=== PATIENT | female | born 1970 | race American Indian/Alaskan Native ===

== ENCOUNTER 2016-08-08 08:59 | Emergency (ER) ==
[2016-08-08 09:06] VITALS: BP 107/54; TEMP 100; BMI 23.8
--- NOTE | 2016-08-08 09:16 | ED.PDOC ---
General ED Provider: Dr. ABBY CLARKE JR Chief Complaint: Non-specific Complaint Stated Complaint: patient states on the left side of her neck the muscle has been "twitching." states this morning she was trying to fall back to sleep and felt the twitching with a sudden onset of shortness of breath. states got up to walk around and chest felt tight and dizzy and lightheaded. states that was a 6:45 this morning.[End]100. 79 20 97 107/54 neck twitching Time Seen by Physician: 09:14 Mode of Arrival: Walk-In Information Source: Patient Exam Limitations: No limitations [facility] T[facility] Documentation Reviewed and Agree: No Review of Systems - Review Of Systems Constitutional: Reports: Malaise Eyes: Reports: No symptoms Ears, Nose, Mouth, Throat: Reports: No symptoms Respiratory: Reports: Orthopnea, Short of air Cardiac: Reports: Chest pain (no pain tightness) GI: Reports: No symptoms : Reports: No symptoms Musculoskeletal: Reports: No symptoms Skin: Reports: No symptoms Neurological: Reports: Anxiety, Other (left neck twitching) Endocrine: Reports: No symptoms Hematologic/Lymphatic: Reports: No symptoms All Other Systems: Other Past Medical History - Past Medical History Previously Healthy: Yes Endocrine: Reports: None Cardiovascular: Reports: None Respiratory: Reports: None Hematological: Reports: Anemia Gastrointestinal: Reports: GERD Genitourinary: Reports: Other (Trichomonus vaginosis 1 month ago ) Neuro/Psych: Reports: Anxiety, Depression Musculoskeletal: Reports: None Cancer: Reports: None Last Menstrual Period: beginning of jul. Other Pertinent Past Medical History: Nasal Polyps. lmp early fe - Surgical History General Surgical History: Reports: Tubal ligation, Cholecystectomy - Family History Family History: Reports: Unknown - Social History Smoking Status: Former smoker Hx Substance Use: No Alcohol Screening: None Physical Exam - Physical Exam Appearance: Well-appearing, Thin Ill-appearing: Mild Pain Distress: Mild Eyes: CAMILLA, EOMI, Conjunctiva clear ENT: Ears normal, Nose normal, Oropharynx normal Neck: Supple Respiratory: Airway patent, Breath sounds clear, Breath sounds equal, Respirations nonlabored Cardiovascular: RRR, Pulses normal, No rub, No murmur GI/: Soft, No masses, Bowel sounds normal, No Organomegaly, Tender (left paraumbilical, diffuse mild tenderness states worse with swedish food(likes swedish food) since gall bladder excision) Musculoskeletal: Normal strength, ROM intact, No edema, No calf tenderness Skin: Warm, Dry, Normal color Neurological: Sensation intact, Motor intact, Reflexes intact, Cranial nerves intact, Alert, Oriented Psychiatric: Anxious Interpretation - EKG Interpretation Time of EKG #1: 09:40 Rate: Normal Rhythm: Sinus Ectopy: None [place]: NL ST Segment: Normal Critical Care Note - Critical Care Note Total Time (mins): 0 Course - Course Vital Signs: Temp Pulse Resp BP Pulse Ox 08/08/16 09:03 100 F H 79 20 107/54 L 97 Departure - Departure Time of Disposition: 09:31 Disposition: HOME SELF-CARE Discharge Problem: Shortness of breath, Bile-induced gastritis Instructions: Dyspnea (ED), Gastritis (ED) Condition: Good Pt referred to PMD for follow-up: Yes Additional Instructions: recommend discuss symptoms with consellor your stress level should be decreased returning family member may be causing too much stress and may need to find other lodgings may try fiber supplements to ease bile symptoms (metamucil fibercon or colace) discuss symptoms with PMD consider gut endocrine overproduction (metanephrines) Allergies/Adverse Reactions: Allergies aspirin Adverse Reaction (Verified 08/08/16 09:06) Difficulty Breathing Penicillins Adverse Reaction (Verified 08/08/16 09:06) NOT SURE OF REACTION, WAS A CHILD promethazine [From Phenergan] Adverse Reaction (Verified 08/08/16 09:06) SHAKEY Home Medications: Ambulatory Orders Omeprazole [Prilosec] 20 mg PO DAILY 10/26/15 Ferrous Gluconate 1 gm MC DAILY #1 powder 05/08/16 Alprazolam [Xanax] 0.5 mg PO BID #60 05/18/16 Albuterol Sulfate [Ventolin Hfa] 18 gm IH TID #1 [email or web address] 05/27/16
== END 2016-08-08 10:14 | disposition home or self-care (01) ==
LOC: ED 08:59
DX: R06.02 Shortness of breath (principal); K29.60 Other gastritis without bleeding; R07.9 Chest pain, unspecified; R42 Dizziness and giddiness; R25.3 Fasciculation
CPT/HCPCS: 93005; 93010; 99283

== ENCOUNTER 2016-10-19 06:14 | Outpatient (CLI) ==
--- NOTE | 2016-10-23 13:02 | ECHOSTRESS ---
Date of Exam: 10/19/16 Ordering Physician: MARLENE Reason for Echo: CHEST TIGHTNESS/PRESSURE, STRESS TEST--NO ISCHEMIA M-Mode Normal Adult Results LV Dimensions Normal Adult Results AoV Opening excursions >1.6 LVEDD-base- 3.5-5.8 Ao root dimensions 2.0-3.7 LVESD-base- 3.1-4.6 L. Atrium dimensions 1.9-3.8 Post. Wall thickness 0.8-1.1 IV septum (thickness) 0.7-1.2 Post. Wall excursion 0.72-1.3 Septal motion Systolic motion R. Ventricular cavity 1.5-2.0 LVEF 60% Paradoxical septal wall motion 2-D: NORMAL LEFT VENTRICULAR CONTRACTILITY--RESTING AND POST EXERCISE M-MODE: MV: AV: TV: PV: CHAMBER SIZE: WALL MOTION: NORMAL LEFT VENTRICULAR CONTRACTILITY--RESTING AND POST EXERCISE PERICARDIUM: INTERPRETATION: 1. NORMAL LEFT VENTRICULAR CONTRACTILITY--RESTING AND POST EXERCISE MTDD
--- NOTE | 2016-10-23 13:12 | STRESSECHO ---
Date of Test: 10/19/16 Reason for Exam: CHEST TIGHTNESS/PRESSURE Ordering Physician: MARLENE Current Medications: OMEPROZOL,XANAX, IRON Resting EKG: SINUS RHYTHM/NO ACUTE CHANGES Target Heart Rate: 147/173 STAGE MPH/GRADE HEART RATE BPM BLOOD PRESSURE mmhg RHYTHM S-T SEGMENT +/- UP DOWN SYMPTOMS,COMMENTS At Rest 65 100/78 SR X NONE 1 1.7/10% 105 128/76 SR X NONE 2 2.5/12% 130 120/74 SR X NONE 3 3.4/14% 4 4.2/16% 5 5.0/18% Immediately after 153 SR X FATIGUE Durations of Exercise: 7:09 Maximum Heart Rate Reached: 153 Reason for Termination: FATIGUE INTERPRETATION: 98% OXYGEN SATURATION WITH EXERCISE ON ROOM AIR METS 10.1 1. NO EVIDENCE OF ISCHEMIA BY ST-T WAVE 2. NO CHEST PAIN OR DISCOMFORT 3. RARE PVC'S WITH EXERCISE 4. BLOOD PRESSURE RESPONSE: NORMAL NORMAL LEFT VENTRICULAR CONTRACTILITY--RESTING AND POST EXERCISE MTDD
== END 2016-10-19 06:15 | disposition home or self-care (01) ==
LOC: CAR 06:14
PROVIDERS: ATTEND General Practice
DX: R07.89 Other chest pain (principal)

== ENCOUNTER 2016-10-23 09:22 | Outpatient (CLI) ==
--- NOTE | 2016-10-23 09:46 | DI ---
Exam: Three x-rays of the nasal bones. Comparison: CT exam of the brain performed on 03/05/2015. Reason for exam: Acquired deformity of nose. FINDINGS: There is a slight inferior angulation of the right nasal bone tip when compared to the le ft. The remainder of the facial bones are unremarkable without displaced fracture. There is pneumat ization of both maxillary and frontal sinuses. Impression: Mild inferior angulation of the right nasal bone tip when compared to the left.
== END 2016-10-23 09:23 | disposition home or self-care (01) ==
LOC: RAD 09:22
PROVIDERS: ATTEND General Practice
DX: M95.0 Acquired deformity of nose (principal)

== ENCOUNTER 2016-11-05 23:07 | Emergency (ER) ==
[2016-11-05 23:16] VITALS: BMI 21.2
[2016-11-05] MEDS ORDERED: SODIUM CHLORIDE 1,000 ML IV STA (23:35)
[2016-11-05] MEDS ORDERED: DOXY-100 100 MG in SODIUM CHLORIDE 250 ML IV STA (23:35)
[2016-11-05] MEDS ORDERED: NORCO 5-325 PO STA (23:38)
[2016-11-06 00:01] LABS: BASOPHILS % (AUTO) 0.6 % (0.0-3.0); EOSINOPHILS % (AUTO) 0.3 % (0.0-7.0); HEMATOCRIT 33.7 % (37.0-47.0); HEMOGLOBIN 11.7 g/dl (12.0-16.0); IMMATURE GRANULOCYTE % (AUTO) 0.3 % (0.0-5.0); LYMPHOCYTES # (AUTO) 0.6 K/uL (0.60-3.4); LYMPHOCYTES % (AUTO) 17.7 (10.0-50.0); MEAN CORPUSCULAR HEMOGLOBIN 31.6 pg (27.0-31.0); MEAN CORPUSCULAR HGB CONC 34.7 (31.8-35.4); MEAN CORPUSCULAR VOLUME 91.1 fl (81.0-99.0); MONOCYTES # (AUTO) 0.2 K/uL (0.4-2.0); MONOCYTES % (AUTO) 6.3 (0-10); NEUTROPHILS # (AUTO) 2.6 K/ul (2.0-6.9); NEUTROPHILS % (AUTO) 74.8; PLATELET COUNT 91 10^3/uL (140-440)
[2016-11-06 00:18] LABS: ADD URINE MICROSCOPIC NO; BILIRUBIN,URINE Negative (NEGATIVE); KETONES,URINE Negative (NEGATIVE); LEUKOCYTE ESTERASE ,URINE Negative (NEGATIVE); NITRITE,URINE Negative (NEGATIVE); PH,URINE 8.5 (5-9); PROTEIN,URINE Negative (NEGATIVE); URINE, BLOOD Negative (NEGATIVE)
[2016-11-06 00:23] LABS: ALBUMIN 3.9 g/dL (3.4-5.0); ALBUMIN/GLOBULIN RATIO 1.26; ANION GAP 12.9; BILIRUBIN,TOTAL 0.48 mg/dL (0.00-1.20); BUN/CREATININE RATIO 8.82; CALCIUM 8.7 mg/dL (8.2-10.2); CREATININE 0.68 mg/dL (0.60-1.30); POTASSIUM 3.9 mmol/L (3.5-5.10)
[2016-11-06 00:24] LABS: FLU INTERNAL QC INTERNAL QC VALID; RAPID FLU A NEGATIVE (NEGATIVE); RAPID FLU B NEGATIVE (NEGATIVE)
--- NOTE | 2016-11-06 00:30 | CT ---
EXAM: CT scan abdomen pelvis without contrast HISTORY: Pain fever COMPARISON: None. FINDINGS: Contiguous axial images obtained through the abdomen pelvis without contrast utilizing 3- mm collimation. Sagittal and coronal reconstructions were imaged reviewed.. The visualized lung ba ses are clear. There is a small hiatal hernia. There has been prior cholecystectomy. The liver, p ancreas, spleen and adrenal glands have normal unenhanced CT appearance.. The abdominal aorta is no rmal course and caliber without aneurysm formation. The kidneys are morphologically normal. There is a normal retrocecal appendix. There is no evidence of free fluid or inflammatory changes. There is a small umbilical hernia containing only fat. IMPRESSION: No acute intra-abdominal findings.. Umbilical hernia containing only fat. Normal appendix Status post cholecystectomy
[2016-11-06 00:32] LABS: ERYTHROCYTE SEDIMENTATION RATE 26 mm/hr (0-20); ESR INTERNAL QC INTERNAL QC VALID
--- NOTE | 2016-11-06 00:38 | CT ---
EXAM: CT scan lumbar spine HISTORY: Back pain fever COMPARISON: None. FINDINGS: Contiguous axial images obtained through the lumbar spine utilizing 3-mm collimation. Sa gittal and coronal reconstructions were imaged and reviewed.. The vertebral bodies are normal in hei ght and alignment. The facet joints intact.. At L2-L3 there is mild concentric disc bulge with fac et arthropathy.. At L3-L4 there is moderate concentric disc bulge with facet arthropathy. Central canal and foramen are patent At L4-L5 there is moderate concentric disc bulge with ligamentum flav um and facet hypertrophy causing early triangulation central canal. There is mild left neural karina inal narrowing.. At L5-S1 there is mild concentric disc bulge with facet arthropathy. Central madhuri l foramen are patent. IMPRESSION: Multilevel non compressive annular disc bulge with facet arthropathy. Mild triangulation of the central canal L4-L5 with associated left neural foramen.
[2016-11-06 02:46] VITALS: BP 111/69; TEMP 98
--- NOTE | 2016-11-06 02:48 | ED.PDOC ---
General ED Provider: Dr. CARLOS ENRIQUE NEWELL-ER Chief Complaint: Fever Stated Complaint: i was bitten by a tick Time Seen by Physician: 23:10 Information Source: Patient Exam Limitations: No limitations [facility] and Triage Documentation Reviewed and Agree: Yes Musculoskeletal Complaint Exam - Back Pain Complaint/Exam Mechanism of Injury: Reports: No known trauma Onset/Duration: 24hrs Symptoms Are: Still present Timing: Constant Episodes Lasting: Minutes Initial Severity: Mild Current Severity: Mild Location: Reports: Discrete Character: Reports: Dull, Aching Aggravating: Reports: Movements, Lifting, Bending, Walking Alleviating: Reports: None Associated Signs and Symptoms: Reports: Fever, Flank pain. Denies: Swelling, Redness, Bruising, Weakness, Numbness, Tingling, Abdominal pain, Bladder incontinence, Bowel incontinence, Weight loss, Pain with weight bearing Related History: Reports: Similar episode TAD Risk Factors: Reports: None AAA Risk Factors: Reports: None Cauda Equina Risk Factors: Reports: None Epidural Abcess Risk Factors: Reports: None Related Surgical History: Reports: None Focal Tenderness: Yes Paraspinal Muscle Tenderness: Yes Paraspinal Muscle Spasm: No Scoliosis: No Lordosis: No Kyphosis: No SLR Test: Right Negative, Left Negative Hip Motion Testing Pain: Right Negative, Left Negative Focal Weakness: Present: None Focal Sensory Loss: Present: None Gait: Present: Normal Differential Diagnoses: Other Review of Systems - Review Of Systems Constitutional: Reports: Fever, Weakness Eyes: Reports: No symptoms Ears, Nose, Mouth, Throat: Reports: No symptoms Respiratory: Reports: No symptoms Cardiac: Reports: No symptoms GI: Reports: No symptoms : Reports: No symptoms Musculoskeletal: Reports: Back pain Skin: Reports: No symptoms Neurological: Reports: No symptoms Endocrine: Reports: No symptoms Hematologic/Lymphatic: Reports: No symptoms All Other Systems: Reviewed and Negative Past Medical History - Past Medical History Previously Healthy: Yes Endocrine: Reports: None Cardiovascular: Reports: None Respiratory: Reports: None Hematological: Reports: Anemia Gastrointestinal: Reports: GERD Genitourinary: Reports: Other (Trichomonus vaginosis 1 month ago ) Neuro/Psych: Reports: Anxiety, Depression Musculoskeletal: Reports: None Cancer: Reports: None Last Menstrual Period: 3 days Other Pertinent Past Medical History: Nasal Polyps. lmp early feb - Surgical History General Surgical History: Reports: Tubal ligation, Cholecystectomy - Family History Family History: Reports: Unknown - Social History Smoking Status: Former smoker Hx Substance Use: No Alcohol Screening: None Lives: With family - Immunizations Tetanus Shot up to Date: No (unknown) Physical Exam - Physical Exam Appearance: Well-appearing, No pain distress, Well-nourished Pain Distress: Mild Eyes: CAMILLA ENT: Ears normal, Nose normal, Oropharynx normal Neck: Supple Respiratory: Airway patent Cardiovascular: RRR, Pulses normal, No rub, No murmur GI/: Soft, Nontender, No masses, Bowel sounds normal, No Organomegaly Musculoskeletal: Normal strength, ROM intact, No edema, No calf tenderness Skin: Warm, Dry, Normal color Neurological: Sensation intact, Motor intact, Reflexes intact, Cranial nerves intact, Alert, Oriented Psychiatric: Affect appropriate, Mood appropriate Interpretation - Radiology Interpretation Radiology Interpretation By: Radiologist Radiology Results: Negative Exam Interpreted: CT Scan Physician Notification - Case Discussed Physician Notified: dr [place]--suggested to transfer the patient Time of Notification: 02:49 Critical Care Note - Critical Care Note Total Time (mins): 0 Course - Course Hematology/Chemistry: 11/05/16 23:35 11/05/16 23:55 Orders, Labs, Meds: Lab Review 11/05/16 11/05/16 11/05/16 23:35 23:40 23:42 WBC 3.50 L RBC 3.70 L Hgb 11.7 L Hct 33.7 L MCV 91.1 MCH 31.6 H MCHC 34.7 RDW Coeff of Avila 13.9 Plt Count 91 L Immature Gran % (Auto) 0.3 Neut % (Auto) 74.8 Lymph % (Auto) 17.7 Mitchell % (Auto) 6.3 Eos % (Auto) 0.3 Baso % (Auto) 0.6 Immature Gran # (Auto) 0.0 Neut # 2.6 Lymph # 0.6 Mitchell # 0.2 L Eos # 0.0 Baso # 0.0 ESR Sodium Potassium Chloride Carbon Dioxide Anion Gap BUN Creatinine Estimated GFR (MDRD) BUN/Creatinine Ratio Glucose Lactic Acid Calcium Total Bilirubin AST ALT Alkaline Phosphatase Total Protein Albumin Globulin Albumin/Globulin Ratio Amylase Lipase Procalcitonin Urine Color Yellow Urine Clarity Clear Urine pH 8.5 Ur Specific Eads 1.020 Urine Protein Negative Urine Glucose (UA) Negative Urine Ketones Negative Urine Blood Negative Urine Nitrite Negative Urine Bilirubin Negative Urine Urobilinogen 1.0 Ur Leukocyte Esterase Negative Influenza A (Rapid) Negative Influenza B (Rapid) Negative 11/05/16 23:55 WBC RBC Hgb Hct MCV MCH MCHC RDW Coeff of [place]ila Plt Count Immature Gran % (Auto) Neut % (Auto) Lymph % (Auto) Mitchell % (Auto) Eos % (Auto) Baso % (Auto) Immature Gran # (Auto) Neut # Lymph # Mitchell # Eos # Baso # ESR 26 H Sodium 138 Potassium 3.9 Chloride 107 Carbon Dioxide 22 Anion Gap 12.9 BUN 6 L Creatinine 0.68 Estimated GFR (MDRD) 93.00 BUN/Creatinine Ratio 8.82 Glucose 93 Lactic Acid 5.2 Calcium 8.7 Total Bilirubin 0.48 AST 31 ALT 27 Alkaline Phosphatase 58 Total Protein 7.0 Albumin 3.9 Globulin 3.1 Albumin/Globulin Ratio 1.26 Amylase 91 Lipase 25 Procalcitonin < 0.05 Urine Color Urine Clarity Urine pH Ur Specific Eads Urine Protein Urine Glucose (UA) Urine Ketones Urine Blood Urine Nitrite Urine Bilirubin Urine Urobilinogen Ur Leukocyte Esterase Influenza A (Rapid) Influenza B (Rapid) Orders Category Date Time Status IV [ED IV/MEDIPORT/POWERPORT] .ONCE EMERGENCY 11/05/16 23:34 Active AMYLASE Stat LAB 11/05/16 23:55 Completed BLOOD CULTURE Stat LAB 11/05/16 23:32 Ordered CBC W/ AUTO DIFF Stat LAB 11/05/16 23:35 Completed COMPREHENSIVE METABOLIC PANEL Stat LAB 11/05/16 23:55 Completed CRP [C-REACTIVE PROTEIN] Stat LAB 11/05/16 23:34 Ordered EHRLICHIA DNA, PCR Stat LAB 11/05/16 23:33 Ordered ESR Stat LAB 11/05/16 23:55 Completed LACTIC ACID Stat LAB 11/05/16 23:55 Completed LIPASE Stat LAB 11/05/16 23:55 Completed MOLECULAR GROUP A STREP Stat LAB 11/05/16 23:40 Results PROCALCITONIN Stat LAB 11/05/16 23:55 Completed RAPID FLU A/B Stat LAB 11/05/16 23:40 Completed TWILA MTN SPOTTED FEVER,IgG Stat LAB 11/05/16 23:33 Ordered TWILA MTN SPOTTED FEVER,IgM Stat LAB 11/05/16 23:33 Ordered STREP SCREEN Stat LAB 11/05/16 23:40 Results URINALYSIS C & S IF INDICATED Stat LAB 11/05/16 23:42 Completed 0.9 % Sodium Chloride [Saline Flush] MEDS 11/05/16 23:34 Ordered 1 syr IVF PRN PRN Doxycycline Hyclate Inj [Doxy-100] 100 mg MEDS 11/05/16 23:35 Discontinued 0.9 % Sodium Chloride [Sodium Chloride] 250 ml IV ONCE Hydrocodone Bit/Acetaminophen [Alexander 5-325] MEDS 11/05/16 23:38 Discontinued 1 tab PO ONCE STA Sodium Chloride 0.9% [Sodium Chloride] 1,000 ml MEDS 11/05/16 23:35 Active IV 100 mls/hr CT ABDOMEN/PELVIS WO CONTRAST Stat RADS 11/05/16 23:[address] LUMBAR SPINE W/O CONTRAST Stat RADS 11/05/16 23:34 Completed Medications Generic Name Dose Route Start Last Admin Trade Name Freq PRN Reason Stop Dose Admin Sodium Chloride 1,000 mls @ 100 mls/hr 11/05/16 23:35 11/06/16 00:22 Sodium Chloride IV 11/06/16 09:34 100 mls/hr .Q10H STA Administration Sodium Chloride 1 syr 11/05/16 23:34 Saline Flush IVF PRN PRN To flush IV Discontinued Medications Generic Name Dose Route Start Last Admin Trade Name Freq PRN Reason Stop Dose Admin Acetaminophen/Hydrocodone Bitart 1 tab 11/05/16 23:38 11/05/16 23:58 Alexander 5-325 PO 11/05/16 23:39 1 tab ONCE STA Administration Doxycycline Hyclate 100 mg/ 250 mls @ 100 mls/hr 11/05/16 23:35 11/06/16 00: 21 Sodium Chloride IV 11/06/16 02:04 100 mls/hr ONCE STA Administration Vital Signs: Temp Pulse Resp BP Pulse Ox 11/06/16 02:45 98 F 82 18 111/69 98 11/06/16 00:27 100.2 F H 11/05/16 23:08 99.9 F H 88 18 118/82 99 Departure - Departure Time of Disposition: 02:48 Disposition: TSF SHORT-TRM HOSP Discharge Problem: Fever Instructions: Tick Bite (ED) Condition: Good Pt referred to PMD for follow-up: Yes Allergies/Adverse Reactions: Allergies aspirin Adverse Reaction (Verified 11/05/16 23:17) Difficulty Breathing Penicillins Adverse Reaction (Verified 11/05/16 23:17) NOT SURE OF REACTION, WAS A CHILD promethazine [From Phenergan] Adverse Reaction (Verified 11/05/16 23:17) SHAKEY Home Medications: Ambulatory Orders Omeprazole [Prilosec] 20 mg PO DAILY 10/26/15 Acetaminophen 325 mg PO DIRECTED PRN 09/08/16 Ferrous Sulfate 325 mg PO DAILY 10/17/16 Albuterol Sulfate [Ventolin Hfa] 18 gm IH TID PRN 11/05/16 Transfer Form Completed: Yes Disposition Discussed With: Patient
== END 2016-11-06 03:42 | disposition short-term general hospital (02) ==
LOC: ED 23:07
DX: R50.9 Fever, unspecified (principal); R10.9 Unspecified abdominal pain; M54.9 Dorsalgia, unspecified; R53.1 Weakness; T14.8 Other injury of unspecified body region; W57.XXXA Bitten or stung by nonvenomous insect and other nonvenomous arthropods, initial encounter
CPT/HCPCS: 36415; 80053; 81001; 82150; 83605; 83690; 84145; 85025; 85651; 86140; 86757; 87040; 87651; 87798; 87804; 87880; 96361; 96365; 96366; 99285

== ENCOUNTER 2016-11-06 03:48 | Outpatient (CLI) ==
[2016-11-05 23:16] VITALS: BMI 21.2
== END 2016-11-06 06:49 | disposition home or self-care (01) ==
LOC: AMBL 03:48
PROVIDERS: ATTEND Family Medicine
DX: R50.9 Fever, unspecified (principal); M54.9 Dorsalgia, unspecified; T14.8 Other injury of unspecified body region; W57.XXXA Bitten or stung by nonvenomous insect and other nonvenomous arthropods, initial encounter

== ENCOUNTER 2016-12-21 16:18 | Outpatient (CLI) ==
[2016-12-21 16:41] LABS: BASOPHILS % (AUTO) 0.4 % (0.0-3.0); EOSINOPHILS % (AUTO) 0.2 % (0.0-7.0); HEMATOCRIT 34.4 % (37.0-47.0); HEMOGLOBIN 11.2 g/dl (12.0-16.0); IMMATURE GRANULOCYTE % (AUTO) 0.2 % (0.0-5.0); LYMPHOCYTES # (AUTO) 1.2 K/uL (0.60-3.4); LYMPHOCYTES % (AUTO) 25.7 (10.0-50.0); MEAN CORPUSCULAR HEMOGLOBIN 30.5 pg (27.0-31.0); MEAN CORPUSCULAR HGB CONC 32.6 (31.8-35.4); MEAN CORPUSCULAR VOLUME 93.7 fl (81.0-99.0); MONOCYTES # (AUTO) 0.3 K/uL (0.4-2.0); MONOCYTES % (AUTO) 6.5 (0-10); NEUTROPHILS # (AUTO) 3.1 K/ul (2.0-6.9); PLATELET COUNT 90 10^3/uL (140-440); RED BLOOD COUNT 3.67 10^6/ul (4.20-5.40)
[2016-12-21 16:58] LABS: ALBUMIN 3.8 g/dL (3.4-5.0); ALBUMIN/GLOBULIN RATIO 1.41; ANION GAP 12.1; BILIRUBIN,TOTAL 0.34 mg/dL (0.00-1.20); BUN/CREATININE RATIO 14.7; CALCIUM 8.6 mg/dL (8.2-10.2); CHOL/HDL RATIO 2.3 (4.5-5.5); CREATININE 0.68 mg/dL (0.60-1.30); POTASSIUM 4.1 mmol/L (3.5-5.10); TOTAL PROTEIN 6.5 g/dL (6.4-8.2)
== END 2016-12-21 16:19 | disposition home or self-care (01) ==
LOC: LAB 16:18
PROVIDERS: ATTEND General Practice
DX: D61.818 Other pancytopenia (principal); F41.9 Anxiety disorder, unspecified; N92.0 Excessive and frequent menstruation with regular cycle; R07.89 Other chest pain; R10.814 Left lower quadrant abdominal tenderness; R14.0 Abdominal distension (gaseous); Z79.899 Other long term (current) drug therapy
CPT/HCPCS: 36415; 80053; 80061; 85025

== ENCOUNTER 2017-03-20 12:44 | Outpatient (CLI) | END 2017-03-20 12:45 | disposition home or self-care (01) | LOC: CAR 12:44 | PROVIDERS: ATTEND General Practice | DX: R00.2 Palpitations (principal) | CPT/HCPCS: 93227 ==

== ENCOUNTER 2017-04-02 17:08 | Outpatient (CLI) | END 2017-04-02 17:09 | disposition home or self-care (01) | LOC: LAB 17:08 | PROVIDERS: ATTEND General Practice | DX: J34.0 Abscess, furuncle and carbuncle of nose (principal) | CPT/HCPCS: 87070 ==

== ENCOUNTER 2017-04-12 13:40 | Emergency (ER) ==
[2017-04-12 13:44] VITALS: BP 123/86; TEMP 99.4; BMI 20.7
[2017-04-12 14:22] LABS: BASOPHILS % (AUTO) 0.5 % (0.0-3.0); EOSINOPHILS % (AUTO) 0.2 % (0.0-7.0); HEMATOCRIT 32.9 % (37.0-47.0); HEMOGLOBIN 11.2 g/dl (12.0-16.0); IMMATURE GRANULOCYTE % (AUTO) 0.5 % (0.0-5.0); LYMPHOCYTES % (AUTO) 22.9 (10.0-50.0); MEAN CORPUSCULAR HEMOGLOBIN 30.8 pg (27.0-31.0); MEAN CORPUSCULAR VOLUME 90.4 fl (81.0-99.0); MONOCYTES # (AUTO) 0.3 K/uL (0.4-2.0); MONOCYTES % (AUTO) 6.8 (0-10); NEUTROPHILS # (AUTO) 3.1 K/ul (2.0-6.9); NEUTROPHILS % (AUTO) 69.1; PLATELET COUNT 119 10^3/uL (140-440); RED BLOOD COUNT 3.64 10^6/ul (4.20-5.40); WHITE BLOOD COUNT 4.41 K/ul (4.6-10.2)
[2017-04-12 14:56] LABS: ALBUMIN 3.7 g/dL (3.4-5.0); ALBUMIN/GLOBULIN RATIO 1.28; BILIRUBIN,TOTAL 0.56 mg/dL (0.00-1.20); BUN/CREATININE RATIO 14.11; CALCIUM 8.8 mg/dL (8.2-10.2); CREATININE 0.85 mg/dL (0.60-1.30); TOTAL PROTEIN 6.6 g/dL (6.4-8.2)
[2017-04-12 15:21] LABS: URINE PREGNANCY INTERNAL QC INTERNAL QC VALID
--- NOTE | 2017-04-12 15:51 | ED.PDOC ---
General ED Provider: Dr. HAYLEY SAXENA Chief Complaint: Dizziness Stated Complaint: dizziness Time Seen by Physician: 13:40 Mode of Arrival: Walk-In Information Source: Patient Exam Limitations: No limitations [facility] and Triage Documentation Reviewed and Agree: Yes Neurological Complaint Exam - Dizziness Complaint/Exam Last Known Well: 1 day Onset: Sudden Duration: 1 day Symptoms Are: Still present Timing: Constant Episodes Lasting: Hours Initial Severity: Moderate Current Severity: Moderate Character: Reports: Lightheaded, Weak Aggravating: Reports: None Alleviating: Reports: None Associated Signs and Symptoms: Denies: Nausea, Vomiting, Diaphoresis, Tinnitus, Chest pain, Short of air, Palpitations, Unsteady gait, GI blood loss, Visual changes, Decreased oral intake, Change in medication, Change in diet, OTC meds, Loss of balance Related History: Similar episode Cardiac Risk Factors: Reports: None CVA Risk Factors: Reports: None Related Surgical History: Reports: None JVD Present: No Carotid Bruit Present: No Glascow Coma Scale (see protocol): 15 Nystagmus Present: Yes Gag Reflex Present: Yes Meningeal Signs Positive: No Focal Weakness: Present: None Focal Sensory Loss: Present: None Gait: Normal [id number]: Normal Findings Romberg Test Positive: No Babinski Sign: Negative Right, Negative Left Heel to Toe Normal: No Differential Diagnoses: Hypovolemia, Metabolic abnormalities, Vasovagal reaction Quality Indicators for Cardiac Chest Pain: EKG in 10min. Quality Indicators for AMI: EKG in 10min. Quality Indicator For Non-Traumatic Chest Pain/Syncope: EKG Performed Review of Systems - Review Of Systems Constitutional: Reports: No symptoms Eyes: Reports: No symptoms Ears, Nose, Mouth, Throat: Reports: No symptoms Respiratory: Reports: No symptoms Cardiac: Reports: No symptoms GI: Reports: No symptoms : Reports: No symptoms Musculoskeletal: Reports: No symptoms Skin: Reports: Other (dizziness) Neurological: Reports: No symptoms Endocrine: Reports: No symptoms Hematologic/Lymphatic: Reports: No symptoms All Other Systems: Reviewed and Negative Past Medical History - Past Medical History Previously Healthy: Yes Endocrine: Reports: None Cardiovascular: Reports: None Respiratory: Reports: None Hematological: Reports: Anemia Gastrointestinal: Reports: GERD Genitourinary: Reports: Other (Trichomonus vaginosis 1 month ago ) Neuro/Psych: Reports: Anxiety, Depression Musculoskeletal: Reports: None Cancer: Reports: None Last Menstrual Period: 6 days ago Other Pertinent Past Medical History: Nasal Polyps. lmp early feb - Surgical History General Surgical History: Reports: Tubal ligation, Cholecystectomy - Family History Family History: Reports: Unknown - Social History Smoking Status: Former smoker Hx Substance Use: No Alcohol Screening: None Physical Exam - Physical Exam Appearance: Well-appearing, No pain distress, Well-nourished Eyes: CAMILLA, EOMI, Conjunctiva clear ENT: Ears normal, Nose normal, Oropharynx normal Respiratory: Airway patent, Breath sounds clear, Breath sounds equal, Respirations nonlabored Cardiovascular: RRR, Pulses normal, No rub, No murmur GI/: Soft, Nontender, No masses, Bowel sounds normal, No Organomegaly Musculoskeletal: Normal strength, ROM intact, No edema, No calf tenderness Skin: Warm, Dry, Normal color Neurological: Sensation intact, Motor intact, Reflexes intact, Cranial nerves intact, Alert, Oriented Psychiatric: Affect appropriate, Mood appropriate Interpretation - Radiology Interpretation Radiology Interpretation By: Radiologist Critical Care Note - Critical Care Note Total Time (mins): 0 Course - Course Hematology/Chemistry: 04/12/17 14:14 04/12/17 14:14 Orders, Labs, Meds: Lab Review 04/12/17 04/12/17 04/12/17 14:14 14:14 15:10 WBC 4.41 L RBC 3.64 L Hgb 11.2 L Hct 32.9 L MCV 90.4 MCH 30.8 MCHC 34.0 RDW Coeff of Avila 13.3 Plt Count 119 L Immature Gran % (Auto) 0.5 Neut % (Auto) 69.1 Lymph % (Auto) 22.9 [place] % (Auto) 6.8 Eos % (Auto) 0.2 Baso % (Auto) 0.5 Immature Gran # (Auto) 0.0 Neut # 3.1 Lymph # 1.0 [place] # 0.3 L Eos # 0.0 Baso # 0.0 Sodium 141 Potassium 4.0 Chloride 110 H Carbon Dioxide 25 Anion Gap 10.0 BUN 12 Creatinine 0.85 Estimated GFR (MDRD) 72.00 BUN/Creatinine Ratio 14.11 Glucose 91 Calcium 8.8 Total Bilirubin 0.56 AST 20 ALT 16 Alkaline Phosphatase 50 Total Protein 6.6 Albumin 3.7 Globulin 2.9 Albumin/Globulin Ratio 1.28 Urine Test Negative Orders Category Date Time Status EKG-(ED ONLY) Stat CARDIO 04/12/17 13:58 Completed CBC W/ AUTO DIFF Stat LAB 04/12/17 14:14 Completed COMPREHENSIVE METABOLIC PANEL Stat LAB 04/12/17 14:14 Completed URINE Stat LAB 04/12/17 15:[address] HEAD W/O CONTRAST Stat RADS 04/12/17 13:58 Ordered Vital Signs: Temp Pulse Resp BP Pulse Ox 04/12/17 13:40 99.4 F 126 H 20 123/86 97 Departure - Departure Time of Disposition: 15:54 (discussed anemia with nursing staff present , also thrombocytopenia) Disposition: HOME SELF-CARE Discharge Problem: Dizziness, Thrombocytopenia Anemia Qualifiers: Anemia type: unspecified type Qualified Code(s): D64.9 - Anemia, unspecified Instructions: Anemia (ED), Thrombocytopenia (ED), Dizziness (ED), Vertigo (ED) Condition: Good Pt referred to PMD for follow-up: Yes Additional Instructions: Please call your Family Physician as soon as possible to schedule a follow-up appointment. Allergies/Adverse Reactions: Allergies aspirin Adverse Reaction (Verified 04/12/17 13:46) Difficulty Breathing Penicillins Adverse Reaction (Verified 04/12/17 13:46) NOT SURE OF REACTION, WAS A CHILD promethazine [From Phenergan] Adverse Reaction (Verified 04/12/17 13:46) [facility] Medications: Ambulatory Orders Omeprazole [Prilosec] 20 mg PO DAILY 10/26/15 Ferrous Sulfate 325 mg PO DAILY 10/17/16 Albuterol Sulfate [Ventolin Hfa] 18 gm IH TID PRN 11/05/16 Disposition Discussed With: Patient
--- NOTE | 2017-04-12 15:52 | CT ---
EXAM: CT Head HISTORY: Headache, dizziness COMPARISON: 03/05/2015 TECHNIQUE: CT head performed without contrast FINDINGS: There is no mass effect, midline shift, or intracranial hemmorhage. Ac white differenti ation is preserved. There is no extra-axial collection. The ventricles, sulci, and basal cisterns a re patent and symmetric. There is no depressed calvarial fracture. The mastoid air cells are clear. The visualized paranasal sinuses are clear. IMPRESSION: No acute intracranial abnormality.
[2017-04-12 16:08] LABS: IRON 93 ug/dL (50-170); TOTAL IRON BINDING CAPACITY 328 ug/dL (240-450)
== END 2017-04-12 16:06 | disposition home or self-care (01) ==
LOC: ED 13:40
DX: R42 Dizziness and giddiness (principal); D64.9 Anemia, unspecified; D69.6 Thrombocytopenia, unspecified
CPT/HCPCS: 36415; 80053; 81025; 82728; 83540; 83550; 85025; 93005; 93010; 99283

== ENCOUNTER 2017-07-24 12:28 | Outpatient (CLI) ==
--- NOTE | 2017-07-24 12:56 | DI ---
Exam: Three x-rays of the sacrum and coccyx. Comparison: CT lumbar spine performed 11/05/2016. Reason for exam: Sacral coccygeal disorder. FINDINGS: No acute fracture or malalignment. The sacroiliac joint spaces appear symmetric. The pel candy ring is intact. Impression: No acute fracture or dislocation is seen in the sacrum or coccyx.
== END 2017-07-24 12:29 | disposition home or self-care (01) ==
LOC: RAD 12:28
PROVIDERS: ATTEND General Practice
DX: M53.3 Sacrococcygeal disorders, not elsewhere classified (principal)

== ENCOUNTER 2017-07-26 14:26 | Outpatient (CLI) ==
--- NOTE | 2017-07-26 14:53 | DI ---
EXAM: Two views of the chest. History: Short of breath Comparison: Chest radiograph 05/27/2016 Findings: Heart size is normal. No focal consolidation. No appreciable pleural fluid and no pneumo thorax. No acute osseous abnormalities. Cholecystectomy clips. Impression: No acute cardiopulmonary process
== END 2017-07-26 14:27 | disposition home or self-care (01) ==
LOC: RAD 14:26
PROVIDERS: ATTEND General Practice
DX: R06.02 Shortness of breath (principal)

== ENCOUNTER 2017-08-02 15:24 | Emergency (ER) ==
[2017-08-02 15:27] VITALS: BP 117/71; TEMP 98.6; BMI 20.2
--- NOTE | 2017-08-02 18:33 | ED.PDOC ---
General ED Provider: Dr. CARLOS ENRIQUE PATEL Chief Complaint: Dizziness Stated Complaint: Onset yesterday PM; noted symptoms when ambulating arround today without episoded of falling. Denies associated visual changes, nausea, vomiting or visual changes. Additionally patient expresses concern over her circulation -occasionally has numbness down bilateral lower extremities without weakness.Worried that her grandmother had circulation problems Time Seen by Physician: 18:30 Mode of Arrival: Walk-In Information Source: Patient Exam Limitations: No limitations [facility] Nursing and Triage Documentation Reviewed and Agree: Yes Reviewed sepsis parameters & appropriate labs ordered?: Yes System Inflammatory Response Syndrome: Not Applicable Sepsis Protocol: For patient's 13 years and over: Temp is 96.8 and below OR 101 and greater Pulse >90 BPM Resp >20/minute Acutely Altered Mental Status Are patient's symptoms suggestive of a new infection, such as: -Pneumonia -Skin, Soft Tissue -Endocarditis -UTI -Bone, Joint Infection -Implantable Device -Acute Abdominal Infection -Wound Infection -Meningitis -Blood Stream Catheter Infection -Unknown System Inflammatory Response Syndrome: Not Applicable EENT Complaint Exam - Ear Complaint/Exam Symptoms Are: Resolved Timing: Intermittent Initial Severity: Mild Current Severity: None Character: Reports: Dizzy. Denies: Room spinning, Sharp pain, Dull pain, Aching pain Aggravating: Reports: None Alleviating: Reports: None Associated Signs and Symptoms: Denies: Hearing loss, Sore throat Related History: Reports: Similar Episode Ear Surgical History: None TMJ Tenderness: None Mastoid Tenderness: None Tragal Tenderness: None External Canal: Normal Material in Canal: Absent: Cerumen, Cerumen impaction, Discharge, Blood, Foreign body Differential Diagnoses: Other (dizziness-non specific( previously had holter monitor which was normal)) Review of Systems - Review Of Systems Constitutional: Reports: No symptoms Eyes: Reports: Blurred vision (occasionally). Denies: Blindness Ears, Nose, Mouth, Throat: Reports: No symptoms Respiratory: Reports: No symptoms Cardiac: Reports: No symptoms GI: Reports: No symptoms : Reports: No symptoms Musculoskeletal: Reports: No symptoms Skin: Reports: No symptoms Neurological: Reports: Anxiety Endocrine: Reports: No symptoms Hematologic/Lymphatic: Reports: Anemia All Other Systems: Reviewed and Negative Past Medical History - Past Medical History Previously Healthy: Yes Endocrine: Reports: None Cardiovascular: Reports: None Respiratory: Reports: None Hematological: Reports: Anemia Gastrointestinal: Reports: GERD Genitourinary: Reports: Other (Trichomonus vaginosis 1 month ago ) Neuro/Psych: Reports: Anxiety, Depression Musculoskeletal: Reports: None Cancer: Reports: None Last Menstrual Period: 08/01/17 Other Pertinent Past Medical History: Nasal Polyps. lmp early feb - Surgical History General Surgical History: Reports: Tubal ligation, Cholecystectomy - Family History Family History: Reports: Unknown - Social History Smoking Status: Former smoker Hx Substance Use: No Alcohol Screening: None Physical Exam - Physical Exam Appearance: Thin Ill-appearing: None Pain Distress: None Eyes: CAMILLA, EOMI, Conjunctiva clear ENT: Ears normal, Nose normal, Oropharynx normal Neck: Supple Respiratory: Airway patent, Breath sounds clear, Breath sounds equal Cardiovascular: RRR, Pulses normal, No rub, No murmur GI/: Soft, Nontender, No masses, Bowel sounds normal, No Organomegaly Musculoskeletal: Normal strength, ROM intact, No edema, No calf tenderness Skin: Warm, Dry, Normal color Neurological: Sensation intact, Motor intact, Reflexes intact (Rhombergs negative; Heel to toe manuever normal), Cranial nerves intact, Alert, Oriented Physician Notification - Case Discussed Physician Notified: Dr Burns Time of Notification: 19:40 (Turned case /CT pending/Pt ready for discharge if CT normal/Follow up PCP for further evaluation) Critical Care Note - Critical Care Note Total Time (mins): 0 Course - Course Hematology/Chemistry: 08/02/17 18:56 08/02/17 18:56 Vital Signs: Temp Pulse Resp BP Pulse Ox 08/02/17 15:24 98.6 F 73 20 117/71 99 Departure - Departure Time of Disposition: 19:50 Disposition: HOME SELF-CARE Discharge Problem: Dizziness, Paresthesia of bilateral legs Instructions: Paresthesia (ED), Lightheadedness (ED) Condition: Good Pt referred to PMD for follow-up: Yes (within 1 week for further evaluation ) IPMP verified?: No Prescriptions: Meclizine HCl 12.5 mg PO Q6-8H PRN #15 tablet PRN Reason: Dizziness Allergies/Adverse Reactions: Allergies aspirin Adverse Reaction (Verified 08/02/17 15:29) Difficulty Breathing Penicillins Adverse Reaction (Verified 08/02/17 15:29) NOT SURE OF REACTION, WAS A CHILD promethazine [From Phenergan] Adverse Reaction (Verified 08/02/17 15:29) [facility] Medications: Ambulatory Orders Omeprazole [Prilosec] 20 mg PO DAILY 10/26/15 Ferrous Sulfate 325 mg PO DAILY 10/17/16 Albuterol Sulfate [Ventolin Hfa] 18 gm IH TID PRN 11/05/16 Meclizine HCl 12.5 mg PO Q6-8H PRN #15 tablet 08/02/17 Disposition Discussed With: Patient (Turned case to Dr Burns pending results of CT scan)
--- NOTE | 2017-08-02 20:13 | CT ---
EXAM: CT brain without contrast HISTORY: Dizziness TECHNIQUE: Multi-slice transaxial helical with coronal and sagital reformated images COMPARISON: CT brain from 04/12/2017 FINDINGS: The midline structures are central. The ventricles are neither dilated nor displaced. Th e brain attenuation with its fontana-white matter interface is normal. No acute intraparenchymal or extr aaxial hemorrhagic collections are detected. The calvarium is intact. The visible paranasal sinuses and mastoid air cells are clear. IMPRESSION: No acute intracranial process.
== END 2017-08-02 20:20 | disposition home or self-care (01) ==
LOC: ED 15:24
DX: R42 Dizziness and giddiness (principal); R20.2 Paresthesia of skin; R53.1 Weakness
CPT/HCPCS: 36415; 80053; 85025; 99283

== ENCOUNTER 2017-12-04 20:53 | Emergency (ER) ==
[2017-12-04 20:57] VITALS: BP 113/75; TEMP 99; BMI 20.9
[2017-12-04] MEDS ORDERED: DECADRON 4 MG/ML SDV IM STA (21:13)
--- NOTE | 2017-12-04 21:14 | ED.PDOC ---
General ED Provider: Dr. BETSY DOWLING Chief Complaint: Cough Stated Complaint: Been coughing, congested for couple days,. getting yellow sputum, sinus drainage Time Seen by Physician: 21:11 Mode of Arrival: Walk-In Information Source: Patient [facility] and Triage Documentation Reviewed and Agree: Yes Reviewed sepsis parameters & appropriate labs ordered?: Yes System Inflammatory Response Syndrome: Not Applicable Sepsis Protocol: For patient's 13 years and over: Temp is 96.8 and below OR 101 and greater Pulse >90 BPM Resp >20/minute Acutely Altered Mental Status Are patient's symptoms suggestive of a new infection, such as: -Pneumonia -Skin, Soft Tissue -Endocarditis -UTI -Bone, Joint Infection -Implantable Device -Acute Abdominal Infection -Wound Infection -Meningitis -Blood Stream Catheter Infection -Unknown Respiratory Complaint Exam - Respiratory Complaint/Exam Symptoms Are: Still present Timing: Constant Initial Severity: Mild Current Severity: Mild Location: Nose, Chest Character: Reports: Productive cough Aggravating: Reports: Allergens, URI Alleviating: Reports: None Associated Signs and Symptoms: Reports: URI, Nasal congestion, Hoarseness. Denies: Rapid breathing, Dyspnea, Fever, Chills, Chest pain, Pleuritic chest pain, Wheezing, Hemoptysis, Dizziness, Calf pain, Calf swelling, Edema, Sinus discomfort, Vomiting, Sore throat, Weight loss, Decreased oral intake, Increased thirst, Increased appetite, Increased urination History of Healthcare-Acquired Pneumonia: No Related Surgical History: Reports: None Pulmonary Embolism Risk Factors: None Cardiac Risk Factors: Reports: None Pseudomonas Risk Factors: Reports: None Tuberculosis Risk Factors: Reports: None Status Asthmaticus Risk Factors: Reports: None Home Oxygen Use: No Recent Stress Test: No Recent Echo/LV Function: No Current Antibiotic Use: No Current Asthma Medication Use: No Respiratory Distress: None Inadequate Respiratory Effort: No Dysphagia Present: No Stridor Present: No JVD Present: No Retractions: Not Present Diminished Breath Sounds: No Prolonged Respiration: Inspiratory phase Sinus Tenderness: None Grunting Respirations: No Kussmaul Respirations: No Differential Diagnoses: Bronchitis, Other (urti) Review of Systems - Review Of Systems Constitutional: Reports: No symptoms Eyes: Reports: No symptoms Ears, Nose, Mouth, Throat: Reports: Nose discharge Respiratory: Reports: Cough Cardiac: Reports: No symptoms GI: Reports: No symptoms : Reports: No symptoms Musculoskeletal: Reports: No symptoms Skin: Reports: No symptoms Neurological: Reports: No symptoms Endocrine: Reports: No symptoms Hematologic/Lymphatic: Reports: No symptoms All Other Systems: Reviewed and Negative Past Medical History - Past Medical History Previously Healthy: Yes Endocrine: Reports: None Cardiovascular: Reports: None Respiratory: Reports: None Hematological: Reports: Anemia Gastrointestinal: Reports: GERD Genitourinary: Reports: Other (Trichomonus vaginosis 1 month ago ) Neuro/Psych: Reports: Anxiety, Depression Musculoskeletal: Reports: None Cancer: Reports: None Last Menstrual Period: 1 week ago Other Pertinent Past Medical History: Nasal Polyps. lmp early feb - Surgical History General Surgical History: Reports: Tubal ligation, Cholecystectomy - Family History Family History: Reports: Unknown - Social History Smoking Status: Former smoker Hx Substance Use: No Alcohol Screening: None Physical Exam - Physical Exam Appearance: Well-appearing, No pain distress, Well-nourished Eyes: CAMILLA, EOMI, Conjunctiva clear ENT: Ears normal (voice changed), Nose normal, Oropharynx normal Respiratory: Airway patent, Breath sounds clear, Breath sounds equal, Respirations nonlabored Cardiovascular: RRR, Pulses normal, No rub, No murmur GI/: Soft, Nontender, No masses, Bowel sounds normal, No Organomegaly Musculoskeletal: Normal strength, ROM intact, No edema, No calf tenderness Skin: Warm, Dry, Normal color Neurological: Sensation intact, Motor intact, Reflexes intact, Cranial nerves intact, Alert, Oriented Psychiatric: Affect appropriate, Mood appropriate Interpretation - Radiology Interpretation Radiology Interpretation By: ED Physician Radiology Results: Negative Exam Interpreted: CXR Critical Care Note - Critical Care Note Total Time (mins): 30 Course - Course Orders, Labs, Meds: Orders Category Date Time Status Dexamethasone 4 mg/ml Inj [Decadron 4 mg/ml Sdv] MEDS 12/04/17 21:13 Discontinued 4 mg IM ONCE STA CHEST, 2 VIEWS PA & LAT Stat RADS 12/04/17 21:13 Taken Medications Discontinued Medications Generic Name Dose Route Start Last Admin Trade Name Freq PRN Reason Stop Dose Admin Dexamethasone Sodium Phosphate 4 mg 12/04/17 21:13 12/04/17 21:19 Decadron 4 Mg/Ml Sdv IM 12/04/17 21:14 4 mg ONCE STA Administration Vital Signs: Temp Pulse Resp BP Pulse Ox 12/04/17 20:55 99.0 F 82 16 113/75 99 Departure - Departure Time of Disposition: 21:14 Disposition: HOME SELF-CARE Discharge Problem: URTI (acute upper respiratory infection) Instructions: Upper Respiratory Infection (ED) Condition: Stable Pt referred to PMD for follow-up: Yes IPMP verified?: No Additional Instructions: Increase Hydration, Take medication with food, Please have f/u with PCP DR Cortes Prescriptions: Azithromycin [Zithromax] 250 mg PO DIRECTED #6 tablet Prednisone 10 mg PO BIDWM #14 tablet Allergies/Adverse Reactions: Allergies aspirin Adverse Reaction (Verified 12/04/17 20:57) Difficulty Breathing Penicillins Adverse Reaction (Verified 12/04/17 20:57) NOT SURE OF REACTION, WAS A CHILD promethazine [From Phenergan] Adverse Reaction (Verified 12/04/17 20:57) [facility] Home Medications: Ambulatory Orders Omeprazole [Prilosec] 20 mg PO DAILY 10/26/15 Ferrous Sulfate 325 mg PO DAILY 10/17/16 Meclizine HCl 12.5 mg PO Q6-8H PRN #15 tablet 08/02/17 Azithromycin [Zithromax] 250 mg PO DIRECTED #6 tablet 12/04/17 Prednisone 10 mg PO BIDWM #14 tablet 12/04/17 Disposition Discussed With: Patient
--- NOTE | 2017-12-05 07:57 | DI ---
EXAM: Chest two views HISTORY: Coughing COMPARISON: 07/26/2017 TECHNIQUE: Two views of the chest were performed FINDINGS: The lungs are clear. There is no pleural effusion or pneumothorax. The heart is normal i n size. The mediastinal contour is normal. There are no acute abnormalities of the bones. IMPRESSION: No acute cardiopulmonary process.
== END 2017-12-04 22:00 | disposition home or self-care (01) ==
LOC: ED 20:53
DX: J06.9 Acute upper respiratory infection, unspecified (principal)
CPT/HCPCS: 96372; 99283

== ENCOUNTER 2018-10-09 12:40 | Outpatient (CLI) ==
--- NOTE | 2018-10-09 16:18 | DI ---
EXAM: Sacroiliac joints three views HISTORY: Joint pain. FINDINGS: There is at least mild osteoarthritis of the lower synovial portions of both sacroiliac sarah ints. No joint fusion or diastases. No fracture is seen. IMPRESSION: 1. Arthropathy of both sacroiliac joints.
--- NOTE | 2018-10-09 16:56 | DI ---
EXAM: Sacrum and coccyx. Two-view HISTORY: Pain COMPARISON: 07/24/2017 FINDINGS: Sacroiliac joints intact. Sacral arcuate intact. No fracture or dislocation. No focal s oft tissue abnormality. IMPERSSION: No fracture or dislocation.
== END 2018-10-09 12:41 | disposition home or self-care (01) ==
LOC: RAD 12:40
PROVIDERS: ATTEND Nurse Practitioner Family
DX: M53.3 Sacrococcygeal disorders, not elsewhere classified (principal)

== ENCOUNTER 2018-12-22 15:14 | Emergency (ER) ==
[2018-12-22 15:18] VITALS: BP 116/77; TEMP 99.1; BMI 20.7
--- NOTE | 2018-12-22 16:54 | ED.PDOC ---
General ED Provider: Dr. CARLOS ENRIQUE NEWELL-ER Chief Complaint: Chest Pain Stated Complaint: i had chest pain around midnight for 5min---no chest pain since--i couldnt get a ride until now Time Seen by Physician: 15:20 Mode of Arrival: Walk-In Information Source: Patient Exam Limitations: No limitations Primary Care Provider: DANICA POLLARD Nursing and Triage Documentation Reviewed and Agree: Yes Does patient meet sepsis criteria?: No System Inflammatory Response Syndrome: Not Applicable Sepsis Protocol: For patient's 13 years and over: Temp is 96.8 and below OR 101 and greater Pulse >90 BPM Resp >20/minute Acutely Altered Mental Status Are patient's symptoms suggestive of a new infection, such as: -Pneumonia -Skin, Soft Tissue -Endocarditis -UTI -Bone, Joint Infection -Implantable Device -Acute Abdominal Infection -Wound Infection -Meningitis -Blood Stream Catheter Infection -Unknown Cardiovascular Complaint Exam - Chest Pain Complaint/Exam Onset: Sudden Duration: 5 min Symptoms Are: Resolved Initial Severity: Mild Current Severity: Mild Location: Reports: Discrete Pain Radiates: Reports: None Character: Reports: Dull, Aching, Squeezing Aggravating: Reports: None Alleviating: Reports: Spontaneous resolution Associated Signs and Symptoms: Denies: Diaphoresis, Nausea, Vomiting, Fever, Palpitations, Cough, Hemoptysis, Back pain, Abdominal pain, Dizziness, Short of air, Calf pain, Calf swelling History of Healthcare-Acquired Pneumonia: Reports: No Recent Stress Test: No Recent Echo/LV Function: No JVD Present: No Subcutaneous Emphysema Present: No Diminshed Breath Sounds: No Reproducible Chest Wall Pain: No Bilateral Pulses Present: Yes Unequal Pulses Noted: No If Risk Factors for AMI/ACS Consider: EKG, Cardiac Enzymes If Risk Factors for PE Consider: Chest CT with contrast If Risk Factors for TAD Consider: Chest CT with contrast Hose Cementer Consulted: No Differential Diagnoses: ACS, Pulmonary Embolism Quality Indicator For Non-Traumatic Chest Pain/Syncope: EKG Performed Review of Systems - Review Of Systems Constitutional: Reports: No symptoms Eyes: Reports: No symptoms Ears, Nose, Mouth, Throat: Reports: No symptoms Respiratory: Reports: No symptoms Cardiac: Reports: Chest pain GI: Reports: No symptoms : Reports: No symptoms Musculoskeletal: Reports: No symptoms Skin: Reports: No symptoms Neurological: Reports: No symptoms Endocrine: Reports: No symptoms Hematologic/Lymphatic: Reports: No symptoms All Other Systems: Reviewed and Negative Past Medical History - Past Medical History Previously Healthy: Yes Endocrine: Reports: None Cardiovascular: Reports: None Respiratory: Reports: None Hematological: Reports: Anemia Gastrointestinal: Reports: GERD Genitourinary: Reports: Other (Trichomonus vaginosis 1 month ago ) Neuro/Psych: Reports: Anxiety, Depression Musculoskeletal: Reports: None Cancer: Reports: None Last Menstrual Period: end of november Other Pertinent Past Medical History: Nasal Polyps. lmp early jul - Surgical History General Surgical History: Reports: Tubal ligation, Cholecystectomy - Family History Family History: Reports: Unknown - Social History Smoking Status: Former smoker Hx Substance Use: No Alcohol Screening: None Physical Exam - Physical Exam Appearance: Well-appearing, No pain distress, Well-nourished Pain Distress: Mild Eyes: CAMILLA, EOMI, Conjunctiva clear ENT: Ears normal, Nose normal, Oropharynx normal Neck: Supple Respiratory: Airway patent, Breath sounds clear, Breath sounds equal, Respirations nonlabored Cardiovascular: RRR, Pulses normal, No rub, No murmur GI/: Soft, Nontender, No masses, Bowel sounds normal, No Organomegaly Musculoskeletal: Normal strength, ROM intact, No edema, No calf tenderness Skin: Warm, Dry, Normal color Neurological: Sensation intact, Motor intact, Reflexes intact, Cranial nerves intact, Alert, Oriented Psychiatric: Affect appropriate, Mood appropriate Interpretation - Radiology Interpretation Radiology Interpretation By: Radiologist Radiology Results: Negative Exam Interpreted: CT Scan - EKG Interpretation Time of EKG #1: 17:25 Rate: Normal Rhythm: Sinus Ectopy: None [place]: NL ST Segment: Normal Interpretation: nsr Critical Care Note - Critical Care Note Total Time (mins): 30 Course - Course Hematology/Chemistry: 12/22/18 15:40 12/22/18 15:40 Orders, Labs, Meds: Lab Review 12/22/18 12/22/18 12/22/18 15:40 15:40 15:40 WBC 3.91 L RBC 3.37 L Hgb 8.6 L Hct 28.6 L MCV 84.9 MCH 25.5 L MCHC 30.1 L RDW Coeff of [place] 14.9 H Plt Count 107 L Immature Gran % (Auto) 0.3 Neut % (Auto) 63.7 Lymph % (Auto) 26.3 Ritchie % (Auto) 7.4 Eos % (Auto) 1.5 Baso % (Auto) 0.8 Immature Gran # (Auto) 0.0 Neut # (Auto) 2.5 Lymph # (Auto) 1.0 Ritchie # (Auto) 0.3 L Eos # (Auto) 0.1 Baso # (Auto) 0.0 Sodium 140.9 Potassium 4.22 Chloride 108.0 H Carbon Dioxide 24.5 Anion Gap 12.62 BUN 13.7 Creatinine 0.63 Estimated GFR (MDRD) 100.00 BUN/Creatinine Ratio 21.74 Glucose 88.2 Calcium 8.89 Total Bilirubin 0.33 AST 34.1 ALT 18.4 Alkaline Phosphatase 50.2 Total Creatine Kinase 95.9 Troponin I < 0.012 Total Protein 7.05 Albumin 4.24 Globulin 2.81 Albumin/Globulin Ratio 1.50 Amylase 125.1 H Lipase 117.1 TSH 2.000 Free T4 0.81 Urine Color Urine Clarity Urine pH Ur Specific [place] Urine Protein Urine Glucose (UA) Urine Ketones Urine Blood Urine Nitrite Urine Bilirubin Urine Urobilinogen Ur Leukocyte Esterase Urine Microscopic RBC Urine Microscopic WBC Ur Squamous Epith Cells Urine Bacteria Urine Opiates Screen Ur Oxycodone Screen Urine Methadone Screen Ur Propoxyphene Screen Ur Barbiturates Screen U Tricyclic Antidepress Ur Phencyclidine Scrn Ur Amphetamine Screen U Methamphetamines Scrn U Benzodiazepines Scrn Urine Cocaine Screen U Cannabinoids Screen 12/22/18 12/22/18 15:40 15:40 WBC RBC Hgb Hct MCV MCH MCHC RDW Coeff of [place] Plt Count Immature Gran % (Auto) Neut % (Auto) Lymph % (Auto) Ritchie % (Auto) Eos % (Auto) Baso % (Auto) Immature Gran # (Auto) Neut # (Auto) Lymph # (Auto) Ritchie # (Auto) Eos # (Auto) Baso # (Auto) Sodium Potassium Chloride Carbon Dioxide Anion Gap BUN Creatinine Estimated GFR (MDRD) BUN/Creatinine Ratio Glucose Calcium Total Bilirubin AST ALT Alkaline Phosphatase Total Creatine Kinase Troponin I Total Protein Albumin Globulin Albumin/Globulin Ratio Amylase Lipase TSH Free T4 Urine Color Yellow Urine Clarity Clear Urine pH 5.5 Ur Specific [place] 1.025 Urine Protein Negative Urine Glucose (UA) Negative Urine Ketones Negative Urine Blood Trace-intact Urine Nitrite Negative Urine Bilirubin Negative Urine Urobilinogen 0.2 Ur Leukocyte Esterase 1+ Urine Microscopic RBC 2-5 Urine Microscopic WBC 2-5 Ur Squamous Epith Cells 2-5 Urine Bacteria 3+ Urine Opiates Screen Negative Ur Oxycodone Screen Negative Urine Methadone Screen Negative Ur Propoxyphene Screen Negative Ur Barbiturates Screen Negative U Tricyclic Antidepress Negative Ur Phencyclidine Scrn Negative Ur Amphetamine Screen Negative U Methamphetamines Scrn Negative U Benzodiazepines Scrn Negative Urine Cocaine Screen Negative U Cannabinoids Screen Negative Orders Category Date Time Status EKG-(ED ONLY) Stat CARDIO 12/22/18 15:32 Completed NPO REMINDER: IMAGING ONCE CARE 12/22/18 15:33 Completed NPO REMINDER: IMAGING ONCE CARE 12/22/18 15:53 Completed ED APARTMENT LEASING MANAGER APPLIED .ONCE EMERGENCY 12/22/18 15:32 Active ED IV/MEDIPORT/POWERPORT .ONCE EMERGENCY 12/22/18 15:32 Active AMYLASE Stat LAB 12/22/18 15:40 Completed CBC W/ AUTO DIFF Stat LAB 12/22/18 15:40 Completed COMPREHENSIVE METABOLIC PANEL Stat LAB 12/22/18 15:40 Completed CREATINE KINASE Stat LAB 12/22/18 15:40 Completed FREE T4 (FREE THYROXINE) Stat LAB 12/22/18 15:40 Completed LIPASE Stat LAB 12/22/18 15:40 Completed TROPONIN I Stat LAB 12/22/18 15:40 Completed TSH [THYROID STIMULATING HORMONE] Stat LAB 12/22/18 15:40 Completed URINALYSIS C & S IF INDICATED Stat LAB 12/22/18 15:40 Completed URINE CULTURE Stat LAB 12/22/18 15:40 Received URINE DRUG SCREEN (RAPID FOR ED) [DRUG SCREEN, URINE, LAB 12/22/18 15:40 Completed RAPID] Stat 0.9 % Sodium Chloride [Saline Flush] MEDS 12/22/18 15:32 Ordered 1 syr IVF PRN PRN CT ABDOMEN/PELVIS W CONTRAST Stat RADS 12/22/18 15:[address] CHEST PE PROTOCOL Stat RADS 12/22/18 15:33 Completed Medications Generic Name Dose Route Start Last Admin Trade Name Freq PRN Reason Stop Dose Admin Sodium Chloride 1 syr 12/22/18 15:32 Saline Flush IVF PRN PRN To flush IV Vital Signs: Temp Pulse Resp BP Pulse Ox 12/22/18 15:15 99.1 F 97 H 16 116/77 99 BRIDGETT Risk Score BRIDGETT Risk Score: Risk Score Odds of by 30D 0 0.1 (0.1-0.2) 1 0.3 (0.2-0.3) 2 0.4 (0.3-0.5) 3 0.7 (0.6-0.9) 4 1.2 (1.0-1.5) 5 2.2 (1.9-2.6) 6 3.0 (2.5-3.6) 7 4.8 (3.8-6.1) Departure - Departure Time of Disposition: 17:26 Disposition: HOME SELF-CARE Discharge Problem: Pancytopenia, Chest pain Instructions: Chest Pain (ED), Pancytopenia (DC) Condition: Fair Pt referred to PMD for follow-up: Yes IPMP verified?: No Additional Instructions: call your pcp office tomorrow and explain you need referral to see a tool crib manager due to your abnormal blood values(like dr french you used to see ) Allergies/Adverse Reactions: Allergies aspirin Adverse Reaction (Verified 12/22/18 15:18) Difficulty Breathing Penicillins Adverse Reaction (Verified 12/22/18 15:18) NOT SURE OF REACTION, WAS A CHILD promethazine [From Phenergan] Adverse Reaction (Verified 12/22/18 15:18) [facility] Home Medications: Ambulatory Orders Albuterol Sulfate [Albuterol Sulfate Hfa] 2 puff IH Q4H PRN 12/22/18 Fluconazole [Diflucan] 150 mg PO ONCE 12/22/18 Hydroxyzine HCl 50 mg PO BEDTIME 12/22/18 Montelukast Sodium 10 mg PO DAILY PRN 12/22/18 Sertraline HCl 75 mg PO DAILY 12/22/18 Disposition Discussed With: Patient, Family
--- NOTE | 2018-12-22 17:13 | CT ---
EXAM: CTA chest HISTORY: Chest pain COMPARISON: None. FINDINGS: Contiguous axial images obtained through the thorax following intravenous contrast utilizi ng 3-mm collimation. Sagittal and coronal reconstructions were imaged and reviewed. Source images w ere utilized create rotating 3-D MIP images.. The thoracic inlet is unremarkable. There is no evide nce of hilar mediastinal lymphadenopathy. There is no evidence of pulmonary embolus. The heart is n ormal in size without pericardial effusion. The lungs are clear bilaterally.. Probable hemangioma a t the T4 level. IMPRESSION: No evidence of pulmonary embolus.
--- NOTE | 2018-12-22 17:18 | CT ---
EXAM: CT scan abdomen pelvis with contrast HISTORY: Polycythemia, chest pain COMPARISON: CT scan abdomen pelvis 11/05/2016 FINDINGS: Contiguous axial images were obtained through the abdomen and pelvis following intravenous contrast utilizing 3-mm collimation. There has been prior cholecystectomy. The liver, pancreas, sp charu and adrenal glands have normal enhanced CT appearance. The abdominal aorta is normal in course caliber. Gastric wall thickening proximally likely related to underdistension. The kidneys excrete contrast normal in bilaterally. There is normal appendix.. The appendix deviates to the right midli ne. The bladder is unremarkable. There is no free fluid or inflammatory changes.. Bone windows rev eals no evidence of lytic or blastic lesions. IMPRESSION: No acute intra-abdominal findings Prior cholecystectomy
== END 2018-12-22 17:42 | disposition home or self-care (01) ==
LOC: ED 15:14
DX: R07.9 Chest pain, unspecified (principal); D61.818 Other pancytopenia
CPT/HCPCS: 36415; 80053; 80306; 81001; 82150; 82550; 83690; 84439; 84443; 84484; 85025; 87086; 87186; 93005; 93010; 99283

== ENCOUNTER 2019-02-14 13:16 | Outpatient (CLI) | END 2019-02-14 13:17 | disposition home or self-care (01) | LOC: LAB 13:16 | DX: D61.818 Other pancytopenia (principal) | CPT/HCPCS: 36415; 80048; 80076; 82525; 82607; 82728; 82746; 83010; 83540; 83550; 83615; 83921; 84165; 84439; 84443; 85025; 85045; 85384; 85610; 85730; 86038; 86430; 86803; 87340; 87389 ==